=== PATIENT | male | born 1970 | race Caucasian/White ===

== ENCOUNTER 2019-07-31 12:36 | Emergency (ER) | payer OTHER ==
[~2019-07-31] VITALS: Ht 182.8 cm; Wt 88.5 kg
[~2019-07-31 12:36] MED LIST: BACTRIM 400 MG-1 TAB PO; BACTRIM DS 8001 TA1 PO; FLOMAX0.4 MG PO; MOTRIN800 MG PO; Motrin,Rufen800 MG PO; NORCO 5-325 TA1 EACH PO; PERCOCET 325 MG1 TA6 PO; VICODIN 5/500 505 MG PO; VICODIN 500 MG-1 TAB PO; ZOFRAN ODT4 MG SL
[2019-07-31] MEDS ORDERED: METHOCARBAMOL500 M1 PO (17:54)
[2019-07-31] MEDS ORDERED: IBU800 MG PO (17:54)
== END 2019-07-31 18:00 | disposition home or self-care (01) ==
LOC: ED 12:36
DX: S39.012A Strain of muscle, fascia and tendon of lower back, initial encounter (principal); S29.012A Strain of muscle and tendon of back wall of thorax, initial encounter; Z87.442 Personal history of urinary calculi; Z79.899 Other long term (current) drug therapy; X50.1XXA Overexertion from prolonged static or awkward postures, initial encounter; Y93.89 Activity, other specified; Y92.89 Other specified places as the place of occurrence of the external cause; Y99.8 Other external cause status